=== PATIENT | female | born 1945 | race Caucasian/White ===

== ENCOUNTER → 2023-10-21 09:44 | Outpatient (REF) | payer MEDICARE, OTHER, SELFPAY ==
[2023-10-21 11:36] LABS: % Basophils 1.2 % (0-2); % Immature Granulocytes 0.2 % (0-0.5); % Lymphocytes 34.7 % (20.5-51.1); % Monocytes 9.1 % (1.7-9.3); % Neutrophils 49.8 % (42.2-75.2); Absolute Basophils 0.1 10^3/uL (0-0.2); Absolute Eosinophils 0.3 10^3/uL (0-0.7); Absolute Monocytes 0.5 10^3/uL (0.1-0.6); Absolute Neutrophils 2.9 10^3/uL (1.4-6.5); Hematocrit 44.6 % (37.0-47.0); Hemoglobin 15.9 g/dL (12.0-16.0); Mean Corp Hgb Conc. 35.7 g/dL (33.0-37.0); Mean Corpuscular Hgb 30.4 pg (27.0-31.0); Mean Corpuscular Volume 85.3 fL (81.0-99.0); Mean Platelet Volume 9.6 fL (7.4-10.4); Nucleated Red Blood Cells % 0 %; Platelet Count 265 10^3/uL (130-400); Red Blood Cell Count 5.23 10^6/uL (4.20-5.40); Red Cell Dist. Width 12.3 % (11.5-14.5); White Blood Cell Count 5.9 10^3/uL (4.8-10.8)
[2023-10-21 11:46] LABS: ALT (SGPT) 33 U/L (0-35); AST (SGOT) 35 U/L (14-36); Albumin 4.2 g/dl (3.5-5.0); Alkaline Phosphatase 74 U/L (38-126); Blood Urea Nitrogen 16 mg/dl (7-17); Calcium 9.9 mg/dl (8.4-10.2); Carbon Dioxide 25 mmol/L (22-30); Chloride 102 mmol/L (98-107); Glucose 114 mg/dl (70-99); HDL Cholesterol 50 mg/dl; LDL Cholesterol, Calculated 144 mg/dl; Potassium 3.9 mmol/L (3.5-5.1); Sodium 136 mmol/L (135-145); Total Bilirubin 0.7 mg/dl (0.2-1.3); Total Cholesterol 226 mg/dl (50-199); Triglyceride 161 mg/dl (10-149); Very Low Density Lipoprotein 32 mg/dl (0-30); eGFR > 60.00
[2023-10-21 11:55] LABS: TSH 0.84 uIU/ml (0.47-4.68)
[2023-10-21 12:33] LABS: Glycohemoglobin (HgbA1c) 5.6 % (4.0-5.6)
[2023-10-21 13:19] LABS: Microalbumin, Random Urine <0.6 mg/dl (0.6-1.7)
== END ==
LOC: REG 09:44
PROVIDERS: ATTENDING PHYSICIAN Internal Medicine Cardiovascular Disease; FAMILY PHYSICIAN Nurse Practitioner Family
DX: E78.2 Mixed hyperlipidemia (principal); E11.9 Type 2 diabetes mellitus without complications
CPT/HCPCS: 36415; 80053; 80061; 82043; 83036; 84443; 85025

== ENCOUNTER → 2023-10-29 14:38 | Outpatient (REF) | payer MEDICARE, OTHER, SELFPAY | LOC: RAD 14:38 | PROVIDERS: ATTENDING PHYSICIAN Nurse Practitioner Family | DX: R29.890 Loss of height (principal); Z78.0 Asymptomatic menopausal state | CPT/HCPCS: 77080 ==

== ENCOUNTER → 2023-12-04 11:49 | Outpatient (REF) | payer MEDICARE, OTHER, SELFPAY ==
[2023-12-04 13:30] LABS: ALT (SGPT) 30 U/L (0-35); AST (SGOT) 37 U/L (14-36); Albumin 4.3 g/dl (3.5-5.0); Alkaline Phosphatase 90 U/L (38-126); Blood Urea Nitrogen 13 mg/dl (7-17); Calcium 10.1 mg/dl (8.4-10.2); Carbon Dioxide 27 mmol/L (22-30); Chloride 100 mmol/L (98-107); Glucose 104 mg/dl (70-99); HDL Cholesterol 53 mg/dl; LDL Cholesterol, Calculated 149 mg/dl; Potassium 4.4 mmol/L (3.5-5.1); Sodium 135 mmol/L (135-145); Total Bilirubin 0.7 mg/dl (0.2-1.3); Total Cholesterol 233 mg/dl (50-199); Total Protein 7.3 g/dl (6.3-8.2); Triglyceride 155 mg/dl (10-149); Very Low Density Lipoprotein 31 mg/dl (0-30); eGFR > 60.00
[2023-12-04 13:49] LABS: Glycohemoglobin (HgbA1c) 5.6 % (4.0-5.6)
[2023-12-04 14:00] LABS: TSH Reflex To Free T4 0.56 uIU/ml (0.47-4.68)
== END ==
LOC: REG 11:49
PROVIDERS: ATTENDING PHYSICIAN Nurse Practitioner Family
DX: M25.551 Pain in right hip (principal); E11.9 Type 2 diabetes mellitus without complications; I10 Essential (primary) hypertension; E03.9 Hypothyroidism, unspecified; E78.2 Mixed hyperlipidemia
CPT/HCPCS: 36415; 73502; 80053; 80061; 83036; 84443

== ENCOUNTER → 2023-12-08 11:17 | Outpatient (REF) | payer MEDICARE, OTHER, SELFPAY | LOC: RAD 11:17 | PROVIDERS: ATTENDING PHYSICIAN Nurse Practitioner Family; FAMILY PHYSICIAN Internal Medicine Cardiovascular Disease | DX: R51.9 Headache, unspecified (principal); R91.1 Solitary pulmonary nodule | CPT/HCPCS: 70450; 71260; Q9967 ==

== ENCOUNTER → 2024-02-12 12:51 | Outpatient (REF) | payer MEDICARE, OTHER, SELFPAY ==
[2024-02-12 14:12] LABS: Urine Albumin 1+ (Neg - Trace); Urine Bilirubin 1+ (Negative); Urine Character Very Cloudy (Clear); Urine Color Yellow; Urine Glucose Negative (Negative); Urine Ketone 1+ (Negative); Urine Leukocyte 2+ (Negative); Urine Nitrite Negative (Negative); Urine Occult Blood Trace (Negative); Urine Specific Gravity 1.025 (<1.030); Urine Urobilinogen 1+ (Neg - 1+)
[2024-02-12 14:20] LABS: Urine Mucus Few
[2024-02-12 14:21] LABS: Urine Calcium Oxalate Crystals Seen
[2024-02-12 14:22] LABS: Urine White Cell >100 /HPF (0-5)
[2024-02-12 14:23] LABS: Urine Bacteria Moderate (Negative)
== END ==
LOC: CLAB 12:51
PROVIDERS: ATTENDING PHYSICIAN Obstetrics & Gynecology
DX: N39.0 Urinary tract infection, site not specified (principal)
CPT/HCPCS: 81003; 81015; 87086

== ENCOUNTER → 2024-03-09 11:10 | Outpatient (REF) | payer MEDICARE, OTHER, SELFPAY | LOC: RAD 11:10 | PROVIDERS: ATTENDING PHYSICIAN Obstetrics & Gynecology; FAMILY PHYSICIAN Nurse Practitioner Family | DX: R10.2 Pelvic and perineal pain (principal); N39.46 Mixed incontinence; N95.2 Postmenopausal atrophic vaginitis; N39.0 Urinary tract infection, site not specified | CPT/HCPCS: 76770; 76830; 76856 ==

== ENCOUNTER → 2024-05-23 09:41 | Outpatient (REF) | payer MEDICARE, OTHER, SELFPAY ==
[2024-05-23 10:47] LABS: Hemoglobin 14.7 g/dL (12.0-16.0); Mean Corpuscular Hgb 29.5 pg (27.0-31.0); Mean Corpuscular Volume 84.2 fL (81.0-99.0); Mean Platelet Volume 9.7 fL (7.4-10.4); Platelet Count 266 10^3/uL (130-400); Red Blood Cell Count 4.99 10^6/uL (4.20-5.40); Red Cell Dist. Width 13.2 % (11.5-14.5); White Blood Cell Count 6.6 10^3/uL (4.8-10.8)
[2024-05-23 11:16] LABS: Blood Urea Nitrogen 13 mg/dl (7-17); Calcium 9.9 mg/dl (8.4-10.2); Carbon Dioxide 24 mmol/L (22-30); Chloride 102 mmol/L (98-107); Glucose 112 mg/dl (70-99); Sodium 140 mmol/L (135-145); eGFR > 60.00
[2024-05-25 08:15] LABS: Glycohemoglobin (HgbA1c) 5.6 % (4.0-5.6)
== END ==
LOC: SDSPAT 09:41
PROVIDERS: ATTENDING PHYSICIAN Obstetrics & Gynecology; FAMILY PHYSICIAN Nurse Practitioner Family; OTHER PHYSICIAN Internal Medicine Cardiovascular Disease
DX: Z01.818 Encounter for other preprocedural examination (principal); E11.9 Type 2 diabetes mellitus without complications
CPT/HCPCS: 36415; 80048; 83036; 84443; 85027; 93005

== ENCOUNTER 2024-05-30 06:27 | Day surgery (SDC) | payer MEDICARE, OTHER, SELFPAY ==
[2024-05-23 10:09] VITALS: BMI 30.4
[2024-05-30] VITALS (11 sets, daily range): BP systolic 133–168; BP diastolic 63–76; BMI 30.4
[2024-05-30 08:55] LABS: Glucose - Point of Care 111 mg/dl (70-99)
[2024-05-30] MEDS: Pyridium 200 MG PO (08:55)
[2024-05-30] MEDS: NORMOSOL-R/PLASMALYTE-A 1000 IV (08:55)
[2024-05-30 11:24] LABS: Glucose - Point of Care 105 mg/dl (70-99)
--- NOTE | 2024-05-30 12:28 | SUR.PHASEI ---
Report to EVELYN Lucas at 1225. patient stable. Maria E Renteria RN BSN.
[2024-05-30 12:33] LABS: Glucose - Point of Care 106 mg/dl (70-99)
--- NOTE | 2024-05-30 15:03 | OR.RPT ---
Operative Report
Operative Report
Date of surgery: 05/30/2024
Attending Surgeon: Irvin Taylor
Preoperative diagnosis:
1.� Post-void dribbling
2. Voiding dysfunction
3. Stress incontinence
Postoperative diagnosis:
1.���� Post-void dribbling
2.���� Voiding dysfunction
3.���� Stress incontinence
Procedure:
1.���� Revision of sling
2.���� Urethrolysis
3.���� Retropubic midurethral sling
4.���� Cystoscopy
Anesthesia:� General with LMA
Estimated blood loss:� 20 cc
Specimen: Pubovaginal sling
Complications:� none
Findings:� Intraoperative cystourethroscopy revealed normal bladder mucosa throughout.� No evidence of cystotomy, sutures, lacerations, lesions, or mesh.� There was normal efflux of urine from bilateral ureteral orifices.� Normal urethra.
Indications:� Patient was complaining of difficulty with urination and post-void dribbling as well as stress incontinence. Her urodynamic testing confirmed a bladder outlet obstruction and stress incontinence. Risks reviewed include nature of
vaginal closure procedure, bleeding, infection, damage to bladder, ureter urethra, bowel, blood vessels, nerves, mesh complications, post-operative urinary retention and post-operative urinary incontinence.� All questions answered and informed
consent obtained.
Procedure:�
On day of surgery, patient properly identified in preoperative waiting area and informed consent of planned procedure again reviewed.� She was then taken to the operating room.� Sequential compression devices were placed on bilateral lower
extremities.� General anesthesia was induced without difficulty.� Ancef 2gm IV was given for antibiotic prophylaxis.� The patient was placed in dorsal lithotomy position with Guilherme stirrups and prepped and draped in the usual sterile fashion.�
Surgical time-out was performed to review patient and procedure. Hendrickson catheter was placed in the bladder to drain it.
The revision of sling was performed as follows. The area of midurethral vaginal mucosa was then infiltrated with 1% lidocaine with 1:[id number] epinephrine.� A vertical incision was made in the vaginal mucosa between the four Allis clamps using a
scalpel.� The sling was identified with careful dissection. The vaginal mucosa was dissected free from the underlying sling using Metzenbaum scissors.�� The sling was isolated with hemostats and incised with Metzenbaum scissors. The sling was either
a prior pubvaginal fascial sling or a biologic graft. Urethrolysis was completed using scissors to allow for adequate mobilization of the bladder neck.
The midurethral retropubic sling was performed as follows: Two Alices were placed on the anterior vaginal mucosa at the level of the bladder neck and 1 cm from the urethral meatus, respectively.� This area of midurethral vaginal mucosa was then
infiltrated with 1% lidocaine with 1:[id number] epinephrine.� A midline incision was made in the vaginal mucosa between the two Allis clamps using a scalpel.� The vaginal mucosa was dissected free from the underlying pubocervical fascia and urethra
using Metzenbaum scissors to the level of the inferior pubic rami bilaterally.� The retropubic sling trocars were brought onto the field.� The right trocar was placed in the left vaginal dissection, below the inferior pubic rami and then passed
behind and around the pubic symphysis and exited the anterior abdominal wall 2 cm from the midline.� This was repeated on the right side.� The hendrickson catheter was then removed and the cystoscopy was performed with the above noted findings.� The
bladder was drained and the hendrickson catheter was replaced.� Ends of the sling were pulled out through the anterior abdominal wall incisions.� The sling was adjusted to allow a curved Alexandra to be passed between the urethra and the midurethral sling
mesh material.� The excess mesh was trimmed at the abdominal incisions, which were closed with Dermabond.� The vaginal incision was closed with 2-0 Vicryl in a running continuous fashion.
Sponge, lap and needle counts were correct x 2. The patient was awaked and sent to the PACU in stable condition.
== END 2024-05-30 14:35 | disposition home or self-care (01) ==
LOC: SDS 06:27
PROVIDERS: ATTENDING PHYSICIAN Obstetrics & Gynecology
DX: N39.3 Stress incontinence (female) (male) (principal); N39.43 Post-void dribbling; N32.0 Bladder-neck obstruction; N95.2 Postmenopausal atrophic vaginitis; N36.8 Other specified disorders of urethra
CPT/HCPCS: 53500; 57287; 88304; 82962; C1771

== ENCOUNTER 2024-07-03 12:34 | Emergency (ER) | payer MEDICARE, OTHER, SELFPAY ==
[2024-07-03 12:39] VITALS: BP 144/78
--- NOTE | 2024-07-03 13:16 | ED.GENMED ---
History of Present Illness
<VINAYAK Tracy Last Filed: 07/03/24 17:06>
General
Chief Complaint: Abdominal Pain
Source: patient
Exam Limitations: none
Time Seen by Provider: 07/03/24 13:01
History of Present Illness
History of Present Illness:
79-year-old female history of abv-vaeldya-zrtyxcvqe diabetes hypertension and recent bladder sling surgery presents with lower abdominal pain sharp in nature right greater than left with associated 5 days worth of mucousy nonbloody diarrhea. She
been trying Pepto-Bismol without relief. No vomiting. No measurable fever. She notes overall fatigue. No recent antibiotic use. No chest pain but she does note palpitations. No other complaints at this time. NO urinary symptoms.
Past History
<VINAYAK Tracy Last Filed: 07/03/24 17:06>
Past History
ED Past Medical History: Asthma, GERD, HTN, Hypercholesterolemia, NIDDM, Valvular disease, Hypothyroidism and Other (Sciatica, sleep apnea, cataracts, psoriasis, irritable bowel syndrome, depression, deviated septum)
ED Past Surgical History: Cardiac, Gynecological, Orthopedic, Tonsilectomy and Other (Cataracts)
Social History
Alcohol: None
Phy Exam
<VINAYAK Tracy Last Filed: 07/03/24 17:06>
Physical Exam
Physical Exam:
General: Well-appearing female no acute respiratory distress
HEENT: Normocephalic atraumatic mucosa dry
Heart: Regular rate and rhythm no murmurs
Lungs: Clear no wheeze
ABd: Soft, tender to palpation to bilateral lower quadrants mild guarding. No CVA tenderness
Ext: no cyanosis or edema
skin: Warm, no rash
Course
<VINAYAK Tracy Last Filed: 07/03/24 17:06>
Orders/Labs/Results
Orders:
Orders
07/03/24 13:13
CT Abd/pelvis W Iv Cont Urgent
Comment:
Reason For Exam: abdominal pain, diarrhea
0.9% Sodium Chloride 1000 ml [Nss] 1,000 ml IV BOLUS
07/03/24 13:33
Complete Blood Count/With Diff Urgent
Comprehensive Metabolic Panel Urgent
Lactic Acid Q4H
Comment: CANCEL 2nd LACTIC ACID IF 1st LACTIC ACID IS LESS THAN 2
07/03/24 13:35
Acetaminophen [Tylenol] 650 mg PO NOW STA
07/03/24 13:53
STOOL [C difficile Antigen & Toxins] Urgent
NICOLE Source: Feces/Stool
Specimen Description:
Date Specimen was Collected: 07/03/24
Time Specimen was Collected: 13:52
Stool Culture Urgent
NICOLE Source: Feces/Stool
Specimen Description:
Date Specimen was Collected: 07/03/24
Time Specimen was Collected: 13:52
07/03/24 14:39
Urinalysis Reflex To Culture Urgent
Date Specimen was Collected: 07/03/24
Time Specimen was Collected: 14:37
Urine Microscopic Reflex Cult Urgent
Urine Culture Urgent
NICOLE Source: U
Specimen Description:
Date Specimen was Collected: 07/03/24
Time Specimen was Collected: 14:37
07/03/24 17:01
LevoFLOXacin [Levaquin] 500 mg PO NOW STA
MetroNIDAZOLE [Flagyl] 500 mg PO NOW STA
Abnormal Lab Results
07/03/24 07/03/24
13:33 14:39
MCHC 32.9 L g/dL
(33.0-37.0)
Absolute Monos (auto) 0.9 H 10^3/uL
(0.1-0.6)
Lymphocytes % 17.2 L %
(20.5-51.1)
Glucose 145 H mg/dl
(70-99)
Ur Occult Blood Reflex Trace A
(Negative)
Leukocyte Esterase Rfl 2+ A
(Negative)
Urine Bacteria (Reflex) Few A
(Negative)
07/03/24 13:33
07/03/24 13:33
Vital Signs
Initial and Last Documented VS:
Initial Vital Signs
Temp Pulse Resp BP Pulse Ox
98.3 F 66 18 144/78 97
07/03/24 12:39 07/03/24 12:39 07/03/24 12:39 07/03/24 12:39 07/03/24 12:39
Last Documented Vital Signs
Temp Pulse Resp BP Pulse Ox
98.3 F 72 22 157/63 95
07/03/24 12:39 07/03/24 16:30 07/03/24 16:30 07/03/24 15:00 07/03/24 16:30
<Cristian Leslie, DO - Last Filed: 07/03/24 17:36>
Orders/Labs/Results
Orders:
Orders
07/03/24 13:13
CT Abd/pelvis W Iv Cont Urgent
Comment:
Reason For Exam: abdominal pain, diarrhea
0.9% Sodium Chloride 1000 ml [Nss] 1,000 ml IV BOLUS
07/03/24 13:33
Complete Blood Count/With Diff Urgent
Comprehensive Metabolic Panel Urgent
Lactic Acid Q4H
Comment: CANCEL 2nd LACTIC ACID IF 1st LACTIC ACID IS LESS THAN 2
07/03/24 13:35
Acetaminophen [Tylenol] 650 mg PO NOW STA
07/03/24 13:53
STOOL [C difficile Antigen & Toxins] Urgent
NICOLE Source: Feces/Stool
Specimen Description:
Date Specimen was Collected: 07/03/24
Time Specimen was Collected: 13:52
Stool Culture Urgent
NICOLE Source: Feces/Stool
Specimen Description:
Date Specimen was Collected: 07/03/24
Time Specimen was Collected: 13:52
07/03/24 14:39
Urinalysis Reflex To Culture Urgent
Date Specimen was Collected: 07/03/24
Time Specimen was Collected: 14:37
Urine Microscopic Reflex Cult Urgent
Urine Culture Urgent
NICOLE Source: U
Specimen Description:
Date Specimen was Collected: 07/03/24
Time Specimen was Collected: 14:37
07/03/24 17:01
LevoFLOXacin [Levaquin] 500 mg PO NOW STA
MetroNIDAZOLE [Flagyl] 500 mg PO NOW STA
Abnormal Lab Results
07/03/24 07/03/24
13:33 14:39
MCHC 32.9 L g/dL
(33.0-37.0)
Absolute Monos (auto) 0.9 H 10^3/uL
(0.1-0.6)
Lymphocytes % 17.2 L %
(20.5-51.1)
Glucose 145 H mg/dl
(70-99)
Ur Occult Blood Reflex Trace A
(Negative)
Leukocyte Esterase Rfl 2+ A
(Negative)
Urine Bacteria (Reflex) Few A
(Negative)
07/03/24 13:33
07/03/24 13:33
Vital Signs
Initial and Last Documented VS:
Initial Vital Signs
Temp Pulse Resp BP Pulse Ox
98.3 F 66 18 144/78 97
07/03/24 12:39 07/03/24 12:39 07/03/24 12:39 07/03/24 12:39 07/03/24 12:39
Last Documented Vital Signs
Temp Pulse Resp BP Pulse Ox
98.3 F 72 22 157/63 95
07/03/24 12:39 07/03/24 16:30 07/03/24 16:30 07/03/24 15:00 07/03/24 16:30
<Rio Mcgee PA-C - Last Filed: 07/03/24 17:06>
MDM/Problems Addressed
Differential Diagnosis Includes:
Patient with lower abdominal pain and mucousy diarrhea. No recent antibiotic use but did have a recent surgery. Consider colitis versus C. difficile versus electrolyte abnormality
Patient is quite tender on exam. CT pending. Order labs stool cultures and urine cultures as well
I reviewed patient's recent operative note which demonstrated revision of the bladder sling
<Rio Mcgee PA-C - Last Filed: 07/03/24 17:06>
*Critical Care Note
Total Time (30-74mins, 75-104mins- exclusive of procedures): Not Applicable
<Rio Mcgee PA-C - Last Filed: 07/03/24 17:06>
Update Note
Update Note:
Patient reexamined. She was hydrated labs reviewed white count normal still afebrile vital signs stable. CT mild acute sigmoid diverticulitis without abscess or perforation. There is also incidentally noted slightly enlarging nodule in the right
lower lung. This was relayed to the patient. Advise she follow-up with the family doctor regarding the lung nodule. Shared decision making occurred for treatment of her diverticulitis. She prefers to go home she would get better rest. I think
this is reasonable she is companied by family. Will prescribe Levaquin and Flagyl given her penicillin allergy. Return precautions were given. Stable for discharge
ED Attending Note
<Rio Mcgee PA-C - Last Filed: 07/03/24 17:06>
-
Portions of this chart may have been created with voice recognition software.� Occasional wrong word or��sound alike� substitutions may have occurred due to the inherent limitations of voice recognition software.
<Cristian Leslie DO - Last Filed: 07/03/24 17:36>
ED Attending Note
I performed the substantive portion of visit, reviewed & personally made and approve the management plan that is documented in note by myself or PING.: Yes
Discharge Plan
Departure
Patient Disposition: Home (Routine Discharge)
Date of Disposition: 07/03/24
Time of Disposition: 17:03
Patient with high blood pressure during this ER visit?: No
Discharge Problem:
Acute diverticulitis
Instructions: Diverticulitis (DC)
Prescriptions:
New
levofloxacin 500 mg tablet
500 mg PO DAILY 10 Days Qty: 10 0RF
metronidazole 500 mg tablet
500 mg PO TID Qty: 30 0RF
No Action
hydrochlorothiazide 25 MG tablet
25 mg PO BID
fluoxetine 20 MG capsule
40 mg PO DAILY
metformin 500 MG tablet extended release 24 hr
500 mg PO DAILY
levothyroxine 112 MCG tablet
112 mcg PO DAILY
hydroxyzine HCl 10 MG tablet
10 - 20 mg PO HS
zinc acetate 50 mg (zinc) Capsule
50 mg PO DAILY
aspirin [Aspir-81] 81 mg Tablet,Delayed Release (Dr/Ec)
81 mg PO DAILY
Benefiber (guar gum) Packet
1 - 2 tbsp PO DAILY
losartan 25 mg Tablet
25 mg PO DAILY
omeprazole 20 mg Capsule,Delayed Release(Dr/Ec)
20 mg PO DAILY
ezetimibe [Zetia] 10 mg Tablet
10 mg PO DAILY
cholecalciferol (vitamin D3) [Vitamin D3] 125 mcg (5,000 unit) Tablet
125 mcg PO DAILY
cyanocobalamin (vitamin B-12) [Vitamin B-12] 5,000 mcg Tablet, Sublingual
5,000 mcg SUBLINGUAL DAILY
Ozempic 0.25 mg or 0.5 mg (2 mg/3 mL) Pen Injector
0.25 mg SC WE
Leeper 3
1 cap PO QID
magnesium
1 cap PO QID
carvedilol 3.125 MG tablet
3.125 mg PO DAILY
Referrals:
Marce Soto CRNP [Family Provider] -
Activity Restrictions/Additional Instructions:
As discussed, you have diverticulitis. We will treat this with antibiotics. Please fill and take antibiotics as prescribed. There are 2 of them. Also as discussed, there is a lung nodule noted on the CAT scan that is slightly larger than last
imaging study. Please follow-up with your family doctor for further evaluation. Return here for increasing pain fever vomiting or other concerning findings
Interventions
Interventions:
*Risk Screen - Suicide Last Done: 07/03/24 12:39
*General Assessment Last Done: 07/03/24 12:39
*Neglect/Abuse Screening Last Done: 07/03/24 12:39
ED- Fall Risk Assessment Last Done: 07/03/24 14:19
*ED COVID-19 Vaccine History Last Done: 07/03/24 13:18
UR-Ckzhxw-Ztletufgnt Assessment Last Done: 07/03/24 14:16
Discharge Date and Time
Print Language: SINHALA
[2024-07-03 13:18] VITALS: BMI 29.3
[2024-07-03 13:30] VITALS: BP 139/65
[2024-07-03] MEDS: NSS 1000 IV (13:34)
[2024-07-03 13:51] LABS: % Basophils 0.5 % (0-2); % Eosinophils 2.1 % (0-6); % Immature Granulocytes 0.3 % (0-0.5); % Lymphocytes 17.2 % (20.5-51.1); % Monocytes 9.2 % (1.7-9.3); % Neutrophils 70.7 % (42.2-75.2); Absolute Basophils 0.1 10^3/uL (0-0.2); Absolute Eosinophils 0.2 10^3/uL (0-0.7); Absolute Lymphocytes 1.6 10^3/uL (1.2-3.4); Absolute Monocytes 0.9 10^3/uL (0.1-0.6); Absolute Neutrophils 6.5 10^3/uL (1.4-6.5); Hematocrit 39.8 % (37.0-47.0); Hemoglobin 13.1 g/dL (12.0-16.0); Mean Corp Hgb Conc. 32.9 g/dL (33.0-37.0); Mean Corpuscular Hgb 28.8 pg (27.0-31.0); Mean Corpuscular Volume 87.5 fL (81.0-99.0); Mean Platelet Volume 9.8 fL (7.4-10.4); Nucleated Red Blood Cells % 0 %; Platelet Count 206 10^3/uL (130-400); Red Blood Cell Count 4.55 10^6/uL (4.20-5.40); Red Cell Dist. Width 13.3 % (11.5-14.5); White Blood Cell Count 9.2 10^3/uL (4.8-10.8)
[2024-07-03] MEDS: TYLENOL 650 MG PO (13:51)
[2024-07-03 13:59] LABS: Lactic Acid 1.4 mmol/L (0.7-2.0)
[2024-07-03 14:00] VITALS: BP 143/59
[2024-07-03 14:00] LABS: ALT (SGPT) 16 U/L (0-35); AST (SGOT) 20 U/L (14-36); Albumin 3.8 g/dl (3.5-5.0); Alkaline Phosphatase 66 U/L (38-126); Blood Urea Nitrogen 11 mg/dl (7-17); Calcium 9.3 mg/dl (8.4-10.2); Carbon Dioxide 23 mmol/L (22-30); Chloride 103 mmol/L (98-107); Estimated Creatinine Clearance 78 ml/min; Glucose 145 mg/dl (70-99); Potassium 4.2 mmol/L (3.5-5.1); Sodium 138 mmol/L (135-145); Total Bilirubin 0.9 mg/dl (0.2-1.3); Total Protein 6.5 g/dl (6.3-8.2); eGFR > 60.00
[2024-07-03 14:52] LABS: Urine Albumin Negative (Neg - Trace); Urine Bilirubin Negative (Negative); Urine Character Clear (Clear); Urine Color Yellow; Urine Glucose Negative (Negative); Urine Ketone Negative (Negative); Urine Leukocyte 2+ (Negative); Urine Nitrite Negative (Negative); Urine Occult Blood Trace (Negative); Urine Urobilinogen Negative (Neg - 1+)
[2024-07-03 15:00] VITALS: BP 157/63
[2024-07-03 15:34] LABS: Urine Bacteria Few (Negative); Urine Red Blood Cell 0-2 /HPF (0-2); Urine Urothelial Cell 0-2 /LPF (FEW)
[2024-07-03] MEDS: FLAGYL 500 MG PO (17:07)
[2024-07-03] MEDS: LEVAQUIN 500 MG PO (17:07)
== END 2024-07-03 17:40 | disposition home or self-care (01) ==
LOC: EMR 12:34
PROVIDERS: Physician Assistant; EMERGENCY PHYSICIAN Emergency Medicine; FAMILY PHYSICIAN Nurse Practitioner Family
DX: K57.32 Diverticulitis of large intestine without perforation or abscess without bleeding (principal); I10 Essential (primary) hypertension; E11.9 Type 2 diabetes mellitus without complications
CPT/HCPCS: 99285; 96360; 74177; 80053; 81003; 81015; 83605; 85025; 87045; 87046; 87077; 87086; 87324; 87427; 87449; Q9967

== ENCOUNTER → 2024-09-19 10:17 | Outpatient (REF) | payer MEDICARE, OTHER, SELFPAY ==
[2024-09-19 11:52] LABS: ALT (SGPT) 23 U/L (0-35); AST (SGOT) 25 U/L (14-36); Alkaline Phosphatase 76 U/L (38-126); Blood Urea Nitrogen 15 mg/dl (7-17); Calcium 9.2 mg/dl (8.4-10.2); Carbon Dioxide 28 mmol/L (22-30); Chloride 102 mmol/L (98-107); Glucose 107 mg/dl (70-99); HDL Cholesterol 48 mg/dl; LDL Cholesterol, Calculated 132 mg/dl; Sodium 139 mmol/L (135-145); Total Bilirubin 0.7 mg/dl (0.2-1.3); Total Cholesterol 209 mg/dl (50-199); Total Protein 7.1 g/dl (6.3-8.2); Triglyceride 149 mg/dl (10-149); Very Low Density Lipoprotein 29 mg/dl (0-30); eGFR > 60.00
[2024-09-19 12:19] LABS: Microalbumin, Random Urine 7.1 mg/dl (0.6-1.7)
[2024-09-19 12:21] LABS: Glycohemoglobin (HgbA1c) 5.5 % (4.0-5.6)
== END ==
LOC: REG 10:17
PROVIDERS: ATTENDING PHYSICIAN Nurse Practitioner Family
DX: E03.9 Hypothyroidism, unspecified (principal); I10 Essential (primary) hypertension; E11.9 Type 2 diabetes mellitus without complications; R53.82 Chronic fatigue, unspecified; R74.8 Abnormal levels of other serum enzymes
CPT/HCPCS: 36415; 80053; 80061; 82043; 82570; 83036

== ENCOUNTER → 2024-12-29 15:36 | Outpatient (REF) | payer MEDICARE, OTHER, SELFPAY | LOC: RCS 15:36 | PROVIDERS: FAMILY PHYSICIAN Nurse Practitioner Family | DX: Z98.890 Other specified postprocedural states (principal) | CPT/HCPCS: 93306 ==

== ENCOUNTER → 2025-03-27 10:00 | Outpatient (REF) | payer MEDICARE, OTHER, SELFPAY ==
[2025-03-27 12:17] LABS: Hematocrit 41.9 % (37.0-47.0); Hemoglobin 13.6 g/dL (12.0-16.0); Mean Corp Hgb Conc. 32.5 g/dL (33.0-37.0); Mean Corpuscular Volume 85.3 fL (81.0-99.0); Nucleated Red Blood Cells % 0 %; Platelet Count 237 10^3/uL (130-400); Red Cell Dist. Width 14.0 % (11.5-14.5)
[2025-03-27 12:51] LABS: ALT (SGPT) 23 U/L (0-35); AST (SGOT) 25 U/L (14-36); Albumin 4.1 g/dl (3.5-5.0); Alkaline Phosphatase 70 U/L (38-126); Blood Urea Nitrogen 14 mg/dl (7-17); Calcium 9.4 mg/dl (8.4-10.2); Carbon Dioxide 28 mmol/L (22-30); Chloride 103 mmol/L (98-107); Glucose 120 mg/dl (70-99); HDL Cholesterol 44 mg/dl; LDL Cholesterol, Calculated 181 mg/dl; Potassium 3.9 mmol/L (3.5-5.1); Sodium 138 mmol/L (135-145); Total Protein 7.0 g/dl (6.3-8.2); Very Low Density Lipoprotein 20 mg/dl (0-30); eGFR > 60.00
[2025-03-27 14:51] LABS: Glycohemoglobin (HgbA1c) 5.7 % (4.0-5.6)
== END ==
LOC: REG 10:00
PROVIDERS: ATTENDING PHYSICIAN Nurse Practitioner Adult Health
DX: I10 Essential (primary) hypertension (principal); E03.9 Hypothyroidism, unspecified; E11.9 Type 2 diabetes mellitus without complications; E78.2 Mixed hyperlipidemia
CPT/HCPCS: 36415; 80053; 80061; 83036; 84443; 85025

== ENCOUNTER → 2025-07-08 10:57 | Outpatient (REF) | payer MEDICARE, OTHER, SELFPAY | LOC: RAD 10:57 | PROVIDERS: ATTENDING PHYSICIAN Internal Medicine Critical Care Medicine; FAMILY PHYSICIAN Nurse Practitioner Adult Health | DX: R91.1 Solitary pulmonary nodule (principal) | CPT/HCPCS: 71250 ==

== ENCOUNTER → 2025-07-12 10:43 | Outpatient (REF) | payer MEDICARE, OTHER, SELFPAY ==
[2025-07-12 12:43] LABS: ALT (SGPT) 30 U/L (0-35); AST (SGOT) 30 U/L (14-36); Albumin 4.3 g/dl (3.5-5.0); Alkaline Phosphatase 75 U/L (38-126); Blood Urea Nitrogen 17 mg/dl (7-17); Calcium 9.7 mg/dl (8.4-10.2); Carbon Dioxide 27 mmol/L (22-30); Chloride 102 mmol/L (98-107); Glucose 119 mg/dl (70-99); HDL Cholesterol 51 mg/dl; LDL Cholesterol, Calculated 169 mg/dl; Potassium 4.1 mmol/L (3.5-5.1); Sodium 136 mmol/L (135-145); Total Protein 7.4 g/dl (6.3-8.2); Very Low Density Lipoprotein 23 mg/dl (0-30); eGFR > 60.00
[2025-07-12 13:23] LABS: Glycohemoglobin (HgbA1c) 5.8 % (4.0-5.9)
== END ==
LOC: REG 10:43
PROVIDERS: ATTENDING PHYSICIAN Nurse Practitioner Adult Health
DX: E11.9 Type 2 diabetes mellitus without complications (principal); E78.00 Pure hypercholesterolemia, unspecified
CPT/HCPCS: 36415; 80053; 80061; 83036